=== PATIENT | male | born 1940 | race Hispanic/Latino ===

== ENCOUNTER 2017-09-23 11:02 | Outpatient (CLI) | payer MEDICARE ==
--- NOTE | 2017-09-23 18:07 | XRay Report ---
FINAL REPORT EXAM: XR SHOULDER 2+V RT HISTORY: SHOULDER JOINT PAIN TECHNIQUE: Four views right shoulder Comparison: None FINDINGS: There is global osteopenia. There is glenohumeral joint space is preserved. There is glenohumeral degenerative arthritis with drooping osteophyte from the medial humeral head. There is advanced acromioclavicular degenerative osteophytic change. The acromion is not significantly downsloping. There is degenerative change at the insertion of the supraspinatus. The imaged right lung apex is clear. There is been reviews median sternotomy. The imaged right lung apex is clear. 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 Acromioclavicular advanced degenerative arthritis.
== END 2017-09-23 11:03 | disposition home or self-care (01) ==
LOC: SPVIMAG 11:02
PROVIDERS: ATTEND Internal Medicine
DX: M19.011 Primary osteoarthritis, right shoulder (principal); M85.811 Other specified disorders of bone density and structure, right shoulder